=== PATIENT | male | born 1965 | race Caucasian/White ===

== ENCOUNTER 2017-12-02 13:55 | Emergency (ER) | payer OTHER, MEDICAID, SELFPAY ==
[2017-12-02 14:04] VITALS: BP 150/90; PULSE 86; RESP 18; TEMP 36.6; O2SAT 99
--- NOTE | 2017-12-02 14:09 | ED.SKABFB ---
HPI - Skin/Abscess/Foreign Bdy <Hanane Davenport PA-C - Last Filed: 12/02/17 17:56> General Chief complaint: Skin/Abscess/Foreign Body Stated complaint: states cellulitis on rt ankle Time Seen by Provider: 12/02/17 14:06 Source: patient Mode of arrival: ambulatory Limitations: no limitations History of Present Illness HPI narrative: This 52-year-old gentleman comes in today due to concern for recurrent infection on his right ankle. He states that he had a small sore there starting 2 or 3 years ago, which she just treats on and off with hydrocortisone. However, a month or so ago he was seen at another local emergency room due to increased pain and redness as well as drainage. He states he had an open wound at that time. He was treated with an antibiotic and this got better, however now he feels like it is getting worse again for the last few days. He states that this has been quite itchy and admits he has been scratching at it, then he stepped in some concrete as well which has made it even more itchy and irritated. Has been treating with some hot water and Epsom salt which seems soothing. He states that he tends to have some swelling in that ankle and foot at baseline due to history of crush injury. He also admits that he has been off of his 3 blood pressure medications including a diuretic due to not being able to get in for follow-up with his PCP. He states that the redness and swelling in the ankle are not acutely changed today versus yesterday, but felt like he was going to need antibiotics again so came in. He has not had any fever. He denies any other new complaints such as chest discomfort or dyspnea on systems review and has been going about his usual activities Related Data Previous Rx's Medication Instructions Recorded amlodipine 10 mg PO DAILY #10 tab 12/02/17 doxycycline monohydrate 100 mg PO BID 10 Days #20 cap 12/02/17 hydrochlorothiazide 25 mg PO DAILY #10 tab 12/02/17 losartan 50 mg PO DAILY #10 tab 12/02/17 Allergies Allergy/AdvReac Type Severity Reaction Status Date / Time No Known Drug Allergies Allergy Verified 12/02/17 14:03 Review of Systems <Hanane Davenport PA-C - Last Filed: 12/02/17 17:56> Review of Systems All systems reviewed & are unremarkable except as noted in HPI and below Exam <Hanane Davenport PA-C - Last Filed: 12/02/17 17:56> Narrative Exam Narrative: GENERAL APPEARANCE: Patient sitting comfortably, in no distress. NECK/THYROID: Neck supple, no JVD. LUNGS: Clear to auscultation bilaterally. HEART: Regular rate and rhythm without murmur, normal S1, S2, no S3 or S4. EXTREMITIES: No cyanosis. Left foot and ankle trace edema, 1+ on the right. There are a few bullous lesions along the right medial border of the foot. No calf tenderness NEUROLOGIC: Alert and oriented, normal speech, and coordination. DERMATOLOGIC: there is some dusky erythema on the R. duarte. R. ankle and medial duarte there is some brighter erythema in the center of this which is warm to touch, and a small central pore. No fluctuance or open wounds. Moderately tender to touch MS: Full AROM R. foot and ankle Initial Vital Signs Initial Vital Signs: Vital Signs Temperature 97.9 F 12/02/17 14:04 Pulse Rate 86 12/02/17 14:04 Respiratory Rate 18 12/02/17 14:04 Blood Pressure 150/90 H 12/02/17 14:04 Pulse Oximetry 99 12/02/17 14:04 <Cinthia Alicea DO - Last Filed: 12/05/17 12:32> Initial Vital Signs Initial Vital Signs: Vital Signs Temperature 97.9 F 12/02/17 14:04 Pulse Rate 86 12/02/17 14:04 Respiratory Rate 18 12/02/17 14:04 Blood Pressure 150/90 H 12/02/17 14:04 Pulse Oximetry 99 12/02/17 14:04 Course <LINDA Fields Last Filed: 12/02/17 17:56> Vital Signs - 8 hr 12/02/17 14:04 12/02/17 15:18 Temperature 97.9 F Pulse Rate 86 69 Respiratory Rate 18 14 Blood Pressure 150/90 H 137/93 H Pulse Oximetry 99 97 <DO Landon Fuentes Last Filed: 12/05/17 12:32> Vital Signs - 8 hr 12/02/17 14:04 12/02/17 15:18 Temperature 97.9 F Pulse Rate 86 69 Respiratory Rate 18 14 Blood Pressure 150/90 H 137/93 H Pulse Oximetry 99 97 Discharge Plan Departure Patient Disposition: Home Clinical Impression: Cellulitis, Hypertension Discharge Date/Time: 12/02/17 15:19 Interventions: ED Discharge Assessment Last Done: 12/02/17 15:18 Instructions: DI for Cellulitis -- Adult Activity Restrictions/Additional Instructions: Please return as we talked about if you have acutely worsening symptoms such as much more redness, pain, or swelling, or new symptoms such as fever. 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 Take a 2nd dose before bedtime this evening. Take with food. Avoid scratching the area. If it gets itchy, please apply a cold pack for a bit, such as frozen vegetables. I have sent in a prescription for a supply of your previous blood pressure medicines as well. Please restart these as the diuretic (water pill) that you were taking may help with the swelling in your leg. You were taking 2 of the 12.5 mg hydrochlorothiazide daily. I changed that to a 25 mg pill that you can take once daily. Other medicines will be the same. You need to follow up with your primary care office in 2-3 days to recheck this. Please call 1st thing in the morning for an appointment Prescriptions: New losartan 50 mg tablet 50 mg PO DAILY Qty: 10 RF: 0 amlodipine 5 mg tablet 10 mg PO DAILY Qty: 10 RF: 0 doxycycline monohydrate 100 mg capsule 100 mg PO BID 10 Days Qty: 20 RF: 0 hydrochlorothiazide 25 mg tablet 25 mg PO DAILY Qty: 10 RF: 0 Referrals: Aranza Luna ARNP [Non-Staff] - <Cinthia Alicea DO - Last Filed: 12/05/17 12:32> Cosign ED Attending Cossimbaature Attestation: I was immediately available in the department for consultation. This documentation has been reviewed and I agree with assessment and plan. Supervised by Cinthia Alicea DO
[2017-12-02 15:18] VITALS: BP 137/93; PULSE 69; RESP 14; O2SAT 97
== END 2017-12-02 15:19 | disposition home or self-care (01) ==
PROVIDERS: Emergency Provider Internal Medicine
DX: L03.115 Cellulitis of right lower limb (principal)
CPT/HCPCS: 99282

== ENCOUNTER 2020-09-12 07:13 | Emergency (ER) | payer SELFPAY ==
[2020-09-12] VITALS (9 sets, daily range): BP systolic 147–179; BP diastolic 85–101; PULSE 77–87; RESP 15–21; TEMP 36.4; O2SAT 82–100; BMI 30.7
--- NOTE | 2020-09-12 07:29 | ED_ITS ---
HPI - Abdominal Pain General Chief Complaint: Abdominal Pain Stated Complaint: food poisoning, woke up with pain in sides Time Seen by Provider: 09/12/20 07:16 Source: patient and other (friend at bedside) Mode of arrival: Wheelchair Limitations: no limitations History of Present Illness HPI narrative: This is a 55-year-old male comes emergency department with complaint of right lower quadrant abdominal pain that started yesterday patient said he had nausea and vomiting and had a bowel movement yesterday. He denies any diarrhea, constipation or black or bloody stools. He states his symptoms improved and then this morning at 4:00 a.m. he developed significant right lower quadrant pain again. Patient states he did ever really appreciated flank. He is unaware of any fevers or chills. He denies any nausea or vomiting currently but states he did have a yesterday. He has not had a bowel movement today. He is not appreciating difficulty with urination, no burning frequency or other changes. Patient states it has not been changing location. Patient states he does have history kidney stone he states this feels somewhat similar. He also has a history of appendectomy. Patient denies any daily medications. He is allergic to sulfa. He states he did finish the antibiotic recently for cellulitis in his right lower extremity. Patients primary care is/was Dr. Simeon. Related Data Previous Rx's Medication Instructions Recorded amlodipine 10 mg PO DAILY #10 tab 12/02/17 hydrochlorothiazide 25 mg PO DAILY #10 tab 12/02/17 losartan 50 mg PO DAILY #10 tab 12/02/17 oxycodone 5 mg PO Q6H PRN #14 tab 09/12/20 tamsulosin [Flomax] 0.4 mg PO DAILY #7 cap 09/12/20 Allergies Allergy/AdvReac Type Severity Reaction Status Date / Time Sulfa (Sulfonamide Allergy Verified 09/12/20 07:25 Antibiotics) Review of Systems Review of Systems ROS Unobtainable: All systems reviewed & are unremarkable except as noted in HPI and below Patient History Medical History Crush injury of foot HTN (hypertension) Surgical History History of appendectomy Social History (Reviewed 09/12/20 @ 07:36 by LATISHA Fuentes Smoking Status: Current every day smoker Smoking Status: Current every day smoker alcohol intake frequency: holidays/special occasions only Substance Use Type: does not use Exam Narrative Exam Narrative: GENERAL: Alert and oriented x three, male in moderate distress. Patient is having difficulty finding position of comfort. HEENT: Head normocephalic, atraumatic, EOMI, pupils reactive, face symmetric, moist mucous membranes NECK: Supple, full range of motion CARDIOVASCULAR: Regular rate and rhythm without murmurs, rubs or gallops. RESPIRATORY: Breath sounds equal bilaterally, no wheezes rales or rhonchi. ABDOMEN: Soft, nontender on exam. Normoactive bowel sounds all 4 quadrants. No guarding or rebound, rigidity, no mass, no bruit, no pulsatile mass. : No CVA tenderness bilaterally. EXTREMITIES: Normal range of motion. Neurovascularly intact NEUROLOGICAL: Cranial nerves II through XII grossly intact. Moving all extremities SKIN: Warm, dry, no petechiae, no rashes or lesions. Initial Vital Signs Initial Vital Signs: Vital Signs Pulse Rate 87 09/12/20 07:19 Pulse Oximetry 96 09/12/20 07:19 Course Orders Ordered: Discontinued Medications Sodium Chloride (Normal Saline 0.9%) 1,000 mls @ 1,000 mls/hr IV BOLUS ONE Stop: 09/12/20 08:29 Last Infusion: 09/12/20 09:15 Dose: 0 mls/hr Documented by: Admin: 09/12/20 07:48 Dose: 1,000 mls/hr Documented by: ZAC Ketorolac Tromethamine (Ketorolac 30 Mg/Ml Vial) 30 mg IV NOW ONE Stop: 09/12/20 07:30 Last Admin: 09/12/20 07:52 Dose: 30 mg Documented by: ZAC Morphine Sulfate (Morphine 4 Mg/Ml Inj) 4 mg IV NOW ONE Stop: 09/12/20 08:01 Last Admin: 09/12/20 08:03 Dose: 4 mg Documented by: ZAC Ondansetron HCl (Ondansetron 4 Mg/2 Ml Inj) 4 mg IV NOW ONE Stop: 09/12/20 07:34 Last Admin: 09/12/20 07:50 Dose: 4 mg Documented by: ZAC Tamsulosin HCl (Tamsulosin 0.4 Mg Capsule) 0.4 mg PO NOW ONE Stop: 09/12/20 08:41 Last Admin: 09/12/20 09:12 Dose: 0.4 mg Documented by: ZAC Vital Signs Vital signs: Vital Signs - 8 hr 09/12/20 07:21 Temperature 97.5 F L Pulse Rate 87 Respiratory Rate 16 Blood Pressure 179/101 H Pulse Oximetry 96 MDM - Abdominal Pain Lab Data Attestation: I reviewed the patient's lab results. Result diagrams: 09/12/20 07:40 09/12/20 07:40 Labs: Lab Results 09/12/20 09/12/20 Range/Units 07:40 07:40 WBC 13.6 H (4.5-11.0) X10^3/uL RBC 4.72 (4.5-5.9) X10^6/uL Hgb 14.2 (13.5-17.5) g/dL Hct 43.0 (41-53) % MCV 91.2 (80-100) fL MCH 30.1 (26-34) PG MCHC 33.0 (30-36) % RDW 14.0 (11.6-14.8) % Plt Count 319 (150-400) X10^3/uL Neut % (Auto) 70.7 (50-75) % Lymph % (Auto) 20.9 L (25-40) % Dane % (Auto) 6.7 (3-14) % Eos % (Auto) 1.4 L (2-4) % Baso % (Auto) 0.3 (0-2) % Neut # (Auto) 9600 H (1847-2102) /uL Lymph # (Auto) 2800 (5342-5529) /uL Dane # (Auto) 900 (0-900) /uL Eos # (Auto) 200 (0-450) /uL Baso # (Auto) 0 (0-100) /uL Sodium 138 (137-145) mmol/L Potassium 4.0 (3.4-5.1) mmol/L Chloride 102 (98-107) mmol/L Carbon Dioxide 27 (22-32) mmol/L BUN 19 (9-20) mg/dL Creatinine 1.01 (0.66-1.25) mg/dL Estimated GFR > 60.0 (>60) mL/min BUN/Creatinine Ratio 18.8 (6-22) Glucose 119 H (70-100) mg/dL Calcium 9.6 (8.4-10.2) mg/dL Total Bilirubin 0.4 (0.2-1.3) mg/dL AST 27 (17-59) IU/L ALT 25 (<50) IU/L Alkaline Phosphatase 81 (38-126) U/L Total Protein 7.4 (6.3-8.2) g/dL Albumin 4.2 (3.5-5.0) g/dL Globulin 3.2 (1.7-4.1) g/dL Albumin/Globulin Ratio 1.3 (1.0-2.8) Lipase 66 (23-300) U/L Point of care testing: Urine Dip Bedside Urine Glucose Negative Bedside Urine Bilirubin - Negative Bedside Urine Ketone - Negative Urine Specific Norris 1.025 Bedside Urine Occult Blood +++ Bedside Urine pH 6 Bedside Urine Urobilinogen - Negative Bedside Urine Nitrite - Negative Bedside Urine Leukocytes - Negative Esterase Imaging Data CT scan - abdomen/pelvis: Radiologist's Impression: [address] [id number] Scan ReportSigned Patient: Merritt Alexandre RMR#: [id number]: 1965Acct:[id number]/Sex: 55 / MDate of Service: 09/12/20Loc: EDAccession Number: [id number] Procedure: CT kidney ureter bladder (KUB) Ordering Provider: Cinthia Alicea D.O. PROCEDURE: CT KIDNEY URETER BLADDER (KUB) INDICATIONS: rlq pain, intermittent, hx appy. ? stone TECHNIQUE: Axial sections were acquired from the lung bases to the pubic symphysis. Coronal and sagittal reformats were performed. For radiation dose reduction, the following was used: automated exposure control, adjustment of mA and/or kV according to patient size. COMPARISON:None. FINDINGS: Image quality: Excellent. Lung bases: The lung bases are clear. No pneumothorax or pleural effusion. Heart: Normal size. No pericardial effusions. URINARY: Right Kidney: Nonobstructive calculi are seen in the collecting systems of both kidneys Right Ureter: At least 1 kidney stone in the distal ureter measuring 4 millimeters causes mild right hydronephrosis. 2 additional calcifications near the left ureter are also seen but are probably vascular calcifications. Left Kidney: 5 centimeter simple cyst. Nonobstructive calculi measuring 2-5 millimeters in the collecting systems. Left Ureter: No hydroureter or stones. Bladder: Normal wall thickness. No stones. ABDOMEN: Liver: The liver has no mass or intrahepatic biliary ductal dilatation. Gallbladder: The gallbladder has no gallstones, pericholecystic fluid, gallbladder wall thickening, or surrounding inflammatory change. Biliary ducts: No extrahepatic biliary ductal dilatation. Pancreas: The pancreas has no mass or ductal dilatation. There is no peripancreatic inflammation. Spleen: Normal size with no mass. Adrenal Glands: No hypertrophy or nodules. Stomach and Bowel: Stomach, small bowel loops, and colon are unremarkable. The appendix is not definitively visualized; however there are no secondary CT findings to suggest acute appendicitis. Peritoneum: No abnormal intraperitoneal fluid. No free air. Ventral Wall: No hernia. Abdominal Nodes: No enlarged retroperitoneal or mesenteric lymph nodes. Vessels: Aorta and inferior vena cava are normal in size. PELVIS: Pelvic Organs: No mass or fluid. Pelvic Nodes: No adenopathy Miscellaneous: Small fat containing inguinal hernias. Bones: Degenerative changes with no focal abnormality. IMPRESSION: 1. 4 mm stone in the right distal ureter. 2. The appendix is not visualized, however there are no secondary findings to suggest acute appendicitis. Dictated by: Tutu Maldonado M.D. on 09/12/2020 at 8:25 Approved by: Tutu Maldonado M.D. on 09/12/2020 at 8:35 MDM Narrative Medical decision making narrative: This is a 55-year-old male comes emergency department with abdominal pain of acute onset. Patient did have some symptoms the day before. And had some nausea and vomiting the day before. Patient's imaging shows a 4 mm stone. No acute kidney injury. He was able to urinate and does not appear to have any infection a mild leukocytosis which may be reactive. Toradol was minimally helpful who is much more comfortable after narcotic pain medication. He is able to tolerate orals. Patient has had 1 prior kidney stone which did not require intervention. Given referral for Urology as well as return precautions. Discharge Plan Departure Patient Disposition: Home Clinical Impression: Kidney stone on right side Instructions: DI for Kidney Stones Activity Restrictions/Additional Instructions: Follow up with urology in the next week if your symptoms do not resolve in the next 2-3 days. Take Flomax once daily until gone. You may take Tylenol up to a 1000 mg every 8 hours and or ibuprofen up to 800 mg every 8 hours. If this is an adequate you may add narcotic pain medication. Take pain medication as prescribed. This medication can make you sleepy do not drive, perform hazardous activities or make any major decisions while taking it. This medication will make you constipated please take a stool softener once to twice daily until stools are soft and regular. Prescription sent to [facility] in [place]. Please return for fevers, lightheadedness or passing out, intractable pain, persistent vomiting, new or changing pain, black or bloody stools, inability urinate or other new or concerning symptoms. Prescriptions: New tamsulosin [Flomax] 0.4 mg capsule 0.4 mg PO DAILY Qty: 7 RF: 0 oxycodone 5 mg tablet 5 mg PO Q6H PRN (Reason: pain) Qty: 14 RF: 0 No Action losartan 50 mg tablet 50 mg PO DAILY Qty: 10 RF: 0 amlodipine 5 mg tablet 10 mg PO DAILY Qty: 10 RF: 0 hydrochlorothiazide 25 mg tablet 25 mg PO DAILY Qty: 10 RF: 0 Referrals: Dustin Wheeler MD [Physician] -
[2020-09-12] MEDS: SODIUM CHLORIDE 0.9% 1,000 ML 1000 ML IV (07:48)
[2020-09-12 07:50] LABS: Add Manual Diff / Slide Review NO; Basophils Absolute Auto 0 /uL (0-100); Basophils Percent Auto 0.3 % (0-2); Eosinophils Absolute Auto 200 /uL (0-450); Eosinophils Percent Auto 1.4 % (2-4); Hemoglobin 14.2 g/dL (13.5-17.5); Lymphocytes Absolute Auto 2800 /uL (1100-4500); Lymphocytes Percent Auto 20.9 % (25-40); Mean Corpuscular Hemoglobin 30.1 PG (26-34); Mean Corpuscular Volume 91.2 fL (80-100); Monocytes Absolute Auto 900 /uL (0-900); Monocytes Percent Auto 6.7 % (3-14); Neutrophils Absolute Auto 9600 /uL (1500-7000); Neutrophils Percent Auto 70.7 % (50-75); Platelet Count 319 X10^3/uL (150-400); Red Blood Cell Count 4.72 X10^6/uL (4.5-5.9); White Blood Cell Count 13.6 X10^3/uL (4.5-11.0)
[2020-09-12] MEDS: ONDANSETRON 4 MG/2 ML INJ IV (07:50)
[2020-09-12] MEDS: KETOROLAC 30 MG/ML VIAL IV (07:52)
[2020-09-12] MEDS: MORPHINE 4 MG/ML INJ IV (08:03)
--- NOTE | 2020-09-12 08:15 | DI.CT.S_ITS ---
PROCEDURE: CT KIDNEY URETER BLADDER (KUB) INDICATIONS: rlq pain, intermittent, hx appy. ? stone TECHNIQUE: Axial sections were acquired from the lung bases to the pubic symphysis. Coronal and sagittal reformats were performed. For radiation dose reduction, the following was used: automated exposure control, adjustment of mA and/or kV according to patient size. COMPARISON:None. FINDINGS: Image quality: Excellent. Lung bases: The lung bases are clear. No pneumothorax or pleural effusion. Heart: Normal size. No pericardial effusions. URINARY: Right Kidney: Nonobstructive calculi are seen in the collecting systems of both kidneys Right Ureter: At least 1 kidney stone in the distal ureter measuring 4 millimeters causes mild right hydronephrosis. 2 additional calcifications near the left ureter are also seen but are probably vascular calcifications. Left Kidney: 5 centimeter simple cyst. Nonobstructive calculi measuring 2-5 millimeters in the collecting systems. Left Ureter: No hydroureter or stones. Bladder: Normal wall thickness. No stones. ABDOMEN: Liver: The liver has no mass or intrahepatic biliary ductal dilatation. Gallbladder: The gallbladder has no gallstones, pericholecystic fluid, gallbladder wall thickening, or surrounding inflammatory change. Biliary ducts: No extrahepatic biliary ductal dilatation. Pancreas: The pancreas has no mass or ductal dilatation. There is no peripancreatic inflammation. Spleen: Normal size with no mass. Adrenal Glands: No hypertrophy or nodules. Stomach and Bowel: Stomach, small bowel loops, and colon are unremarkable. The appendix is not definitively visualized; however there are no secondary CT findings to suggest acute appendicitis. Peritoneum: No abnormal intraperitoneal fluid. No free air. Ventral Wall: No hernia. Abdominal Nodes: No enlarged retroperitoneal or mesenteric lymph nodes. Vessels: Aorta and inferior vena cava are normal in size. PELVIS: Pelvic Organs: No mass or fluid. Pelvic Nodes: No adenopathy Miscellaneous: Small fat containing inguinal hernias. Bones: Degenerative changes with no focal abnormality. IMPRESSION: 1. 4 mm stone in the right distal ureter. 2. The appendix is not visualized, however there are no secondary findings to suggest acute appendicitis. Dictated by: Tutu Maldonado M.D. on 09/12/2020 at 8:25 Approved by: Tutu Maldonado M.D. on 09/12/2020 at 8:35
[2020-09-12 08:19] LABS: Alanine Aminotransferase 25 IU/L (<50); Albumin 4.2 g/dL (3.5-5.0); Albumin Globulin Ratio 1.3 (1.0-2.8); Alkaline Phosphatase 81 U/L (38-126); Aspartate Aminotransferase 27 IU/L (17-59); BUN Creatinine Ratio 18.8 (6-22); Bilirubin Total 0.4 mg/dL (0.2-1.3); Blood Urea Nitrogen 19 mg/dL (9-20); Calcium 9.6 mg/dL (8.4-10.2); Carbon Dioxide 27 mmol/L (22-32); Chloride 102 mmol/L (98-107); Estimated Glomerular Filt Rate > 60.0 mL/min (>60); Globulin 3.2 g/dL (1.7-4.1); Glucose 119 mg/dL (70-100); HEMOLYSIS < 15 (0-50); Lipase 66 U/L (23-300); Sodium 138 mmol/L (137-145); Total Protein 7.4 g/dL (6.3-8.2)
[2020-09-12] MEDS: TAMSULOSIN 0.4 MG CAPSULE PO (09:12)
== END 2020-09-12 10:35 | disposition home or self-care (01) ==
PROVIDERS: Emergency Provider Emergency Medicine
DX: N20.0 Calculus of kidney (principal); Z87.442 Personal history of urinary calculi; R11.2 Nausea with vomiting, unspecified
CPT/HCPCS: 36415; 74176; 80053; 81003; 83690; 85025; 96361; 96374; 96375; 99284; J1885; J2270; J2405

== ENCOUNTER 2020-12-12 10:02 | Emergency (ER) | payer SELFPAY ==
[2020-12-12] VITALS (7 sets, daily range): BP systolic 153–154; BP diastolic 85–93; PULSE 83–104; RESP 16; TEMP 36.3; O2SAT 91–100; BMI 29.2
--- NOTE | 2020-12-12 10:30 | ED_ITS ---
HPI - Abdominal Pain General Chief Complaint: Abdominal Pain Stated Complaint: abdominal pain, poss kidney stone(s) Time Seen by Provider: 12/12/20 10:33 Source: patient and family Mode of arrival: Wheelchair History of Present Illness HPI narrative: Patient complains of onset for 5 days ago of mostly left lower abdominal left flank pain rating to the groin. Seen here August 2020 for kidney stone on the right side. States feels about the same. That was the 2nd kidney stone. Never saw urologist or had any procedures in the past. No recent illness. No fever chills. No dysuria or urgency. Has had decreased urination. Colonoscopy in the past with polyp findings. No diverticulosis or diverticulitis history. Denies any chest pain. No hematuria. No dysuria. Related Data Previous Rx's Medication Instructions Recorded amlodipine 5 mg tablet 10 mg PO DAILY #10 tab 12/02/17 hydrochlorothiazide 25 mg tablet 25 mg PO DAILY #10 tab 12/02/17 losartan 50 mg tablet 50 mg PO DAILY #10 tab 12/02/17 oxycodone 5 mg tablet 5 mg PO Q6H PRN #14 tab 09/12/20 tamsulosin 0.4 mg capsule (Flomax) 0.4 mg PO DAILY #7 cap 09/12/20 cephalexin 500 mg capsule 500 mg PO QID #20 cap 12/12/20 hydrocodone 5 mg-acetaminophen 325 1 tab PO Q6H PRN #20 tab 12/12/20 mg tablet ondansetron 4 mg disintegrating 4 mg PO Q8H PRN #10 tab 12/12/20 tablet tamsulosin 0.4 mg capsule (Flomax) 0.4 mg PO BEDTIME #30 cap 12/12/20 Allergies Allergy/AdvReac Type Severity Reaction Status Date / Time Sulfa (Sulfonamide Allergy Verified 09/12/20 07:25 Antibiotics) Review of Systems Review of Systems Narrative: GENERAL: Denies chills, fatigue, malaise, fever, sweats. HEENT: Denies sinus pain, ear pain, sore throat RESPIRATORY: Denies dyspnea, cough CARDIOVASCULAR: Denies chest pain, palpitations GASTROINTESTINAL: Denies nausea, vomiting, complains of left flank and abdominal pain : Denies dysuria, frequency, hematuria MUSCULOSKELETAL: denies muscle or bony pain SKIN: Denies rash, skin lesions NEUROLOGIC: Denies weakness, numbness ROS Unobtainable: All systems reviewed & are unremarkable except as noted in HPI and below Patient History Medical History Crush injury of foot HTN (hypertension) Surgical History History of appendectomy Social History Smoking Status: Current every day smoker Smoking Status: Current every day smoker alcohol intake frequency: a few times a month Substance Use Type: does not use Exam Narrative Exam Narrative: GENERAL: in no distress, not toxic not dyspneic HEAD: Normocephalic. EYES: Pupils equal round No scleral icterus. No injection no discharge ENT: Mucous membranes moist. NECK: Trachea midline. CARDIOVASCULAR: Regular rate and rhythm without murmurs RESPIRATORY: Clear to auscultation. Breath sounds equal bilaterally. No wheezes, rales, or rhonchi. GASTROINTESTINAL: Abdomen soft, non-tender, no CVA tenderness, abdomen nontender all 4 quadrants. No peritoneal signs. Bowel sounds present. EXTREMITIES: No gross deformities. BACK: No flank tenderness. NEURO: AOx4. SKIN: Warm and dry PSYCH: Not anxious, is cooperative Initial Vital Signs Initial Vital Signs: Vital Signs Pulse Rate 97 H 12/12/20 10:19 Blood Pressure 154/93 H 12/12/20 10:19 Pulse Oximetry 97 12/12/20 10:19 Course Course Course Narrative: No new issues during course of stay. Pain controlled Orders Ordered: ED Orders 12/12/20 10:28 CT kidney ureter bladder (KUB) Stat 12/12/20 10:35 Complete Blood Count AUTO DIFF Stat Comprehensive Metabolic Panel Stat Lipase Stat 12/12/20 11:53 Urinalysis and Microscopic Stat Discontinued Medications Cephalexin HCl (Cephalexin 250 Mg Capsule) 500 mg PO NOW ONE Stop: 12/12/20 13:08 Last Admin: 12/12/20 13:18 Dose: 500 mg Documented by: JAYLENE Sodium Chloride (Normal Saline 0.9%) 1,000 mls @ 1,000 mls/hr IV BOLUS ONE Stop: 12/12/20 11:27 Last Infusion: 12/12/20 11:49 Dose: 0 mls/hr Documented by: Admin: 12/12/20 10:46 Dose: 1,000 mls/hr Documented by: JAYLENE Morphine Sulfate (Morphine 4 Mg/Ml Inj) 4 mg IV NOW ONE Stop: 12/12/20 10:29 Last Admin: 12/12/20 10:45 Dose: 4 mg Documented by: JAYLENE Ondansetron HCl (Ondansetron 4 Mg/2 Ml Inj) 4 mg IV NOW ONE Stop: 12/12/20 10:29 Last Admin: 12/12/20 10:45 Dose: 4 mg Documented by: JAYLENE Tamsulosin HCl (Tamsulosin 0.4 Mg Capsule) 0.4 mg PO NOW ONE Stop: 12/12/20 13:11 Last Admin: 12/12/20 13:20 Dose: 0.4 mg Documented by: JAYLENE Reevaluation(s) Reevaluation #1: Updated patient results. Pain control at this time. Awaiting call back from Dr. Wheeler, urology Time: 11:58 Reevaluation #2: Reviewed with patient conversation I had with Dr. Wheeler. Currently pain free. He agrees for follow-up in the office this week. His boss is at bedside Time: 13:08 Consultations Consultation #1: Spoke with Dr. Wheeler, urology. Review laboratory studies and imaging. At this time does not feel need for urgent intervention for the kidney stone. White cell count without fever likely demargination secondary to stress. Urine shows no signs of infection. Prescribed Flomax for 30 days Vital Signs Vital signs: Vital Signs - 8 hr 12/12/20 10:45 12/12/20 11:00 12/12/20 11:30 Pulse Rate 93 H 86 83 Blood Pressure Pulse Oximetry 91 96 98 12/12/20 13:20 12/12/20 13:21 Pulse Rate 104 H Blood Pressure 153/85 H Pulse Oximetry 100 MDM - Abdominal Pain Differential Diagnosis Differential diagnosis: Likely abdominal pain, acute appendicitis, calculus of kidney, constipation, diverticulitis, pancreatitis and small bowel obstruction Lab Data Result diagrams: 12/12/20 10:35 12/12/20 10:35 Labs: Lab Results 12/12/20 12/12/20 12/12/20 Range/Units 10:35 10:35 11:53 WBC 15.9 H (4.5-11.0) X10^3/uL RBC 4.81 (4.5-5.9) X10^6/uL Hgb 14.6 (13.5-17.5) g/dL Hct 44.1 (41-53) % MCV 91.8 (80-100) fL MCH 30.3 (26-34) PG MCHC 33.0 (30-36) % RDW 14.3 (11.6-14.8) % Plt Count 298 (150-400) X10^3/uL Neut % (Auto) 78.6 H (50-75) % Lymph % (Auto) 10.5 L (25-40) % Travis % (Auto) 10.3 (3-14) % Eos % (Auto) 0.2 L (2-4) % Baso % (Auto) 0.4 (0-2) % Neut # (Auto) 23824 H (3170-8089) /uL Lymph # (Auto) 1700 (9486-1367) /uL Travis # (Auto) 1600 H (0-900) /uL Eos # (Auto) 0 (0-450) /uL Baso # (Auto) 100 (0-100) /uL Sodium 135 L (137-145) mmol/L Potassium 3.8 (3.4-5.1) mmol/L Chloride 96 L (98-107) mmol/L Carbon Dioxide 30 (22-32) mmol/L BUN 22 H (9-20) mg/dL Creatinine 1.37 H (0.66-1.25) mg/dL Estimated GFR 53.9 L (>60) mL/min BUN/Creatinine Ratio 16.1 (6-22) Glucose 118 H (70-100) mg/dL Calcium 9.4 (8.4-10.2) mg/dL Total Bilirubin 0.9 (0.2-1.3) mg/dL AST 23 (17-59) IU/L ALT 20 (<50) IU/L Alkaline Phosphatase 82 (38-126) U/L Total Protein 7.9 (6.3-8.2) g/dL Albumin 4.5 (3.5-5.0) g/dL Globulin 3.4 (1.7-4.1) g/dL Albumin/Globulin Ratio 1.3 (1.0-2.8) Lipase 24 (23-300) U/L Urine Color Yellow Urine Appearance Clear Urine pH 6.0 (4.5-8.0) Ur Specific [place] 1.010 (1.000-1.035) Urine Protein Negative (Negative) Urine Glucose (UA) Negative (Negative) g/dL Urine Ketones Trace H (NEGATIVE) Urine Occult Blood Trace-lysed (Negative) Urine Nitrate Negative (Negative) Urine Bilirubin Negative (NEGATIVE) Urine Urobilinogen 0.2 (0.2) E.U./dL Ur Leukocyte Esterase Negative (NEGATIVE) Urine RBC 5-10/hpf H (0-5/HPF) Urine WBC None seen (0-5/HPF) Ur Squamous Epith Cells 0-1 /hpf (0-5/HPF) Amorphous Sediment 1+ Urine Bacteria None seen (None) Urine Sperm 2+ Ur Culture Indicated? Cult not indicated Imaging Data CT scan - abdomen/pelvis: Radiologist's Impression: [address] [id number] Scan ReportSigned Patient: Merritt Alexandre R#: [id number]: 1965Acct:[id number]/Sex: 55 / MDate of Service: 12/12/20Loc: EDAccession Number: [id number] Procedure: CT kidney ureter bladder (KUB) Ordering Provider: Robert Wilson MD PROCEDURE: CT KIDNEY URETER BLADDER (KUB) INDICATIONS: lt flank pain TECHNIQUE: Axial sections were acquired from the lung bases to the pubic symphysis. Coronal and sagittal reformats were performed. For radiation dose reduction, the following was used: automated exposure control, adjustment of mA and/or kV according to patient size. COMPARISON: [facility], CT, CT KIDNEY URETER BLADDER (KUB), 09/12/2020, 8:00. FINDINGS: Image quality: Excellent. Lung bases: A small pleural base nodule along the left lower lobe measuring up to 4 mm on series 3, image 9 appears stable in size compared to the recent prior study.. Heart: No significant findings. URINARY: Right Kidney and ureter: There is a punctate nonobstructing stone in the super ior pole of the right kidney. No right hydronephrosis or hydroureter. Left Kidney and ureter: There is a small obstructing stone measuring approximately 3-4 mm within the distal left ureter just proximal to the ureterovesicular junction. There is associated mild left hydroureteronephrosis with perinephric and periureteral fat stranding. There are additional nonobstructing left renal stones including clustered stones within the inferior pole with the largest measuring up to approximately 3 mm. Bladder: Normal wall thickness. No stones. ABDOMEN: Liver: Unremarkable. Gallbladder: Unremarkable. Biliary ducts: Unremarkable. Pancreas: Unremarkable. Spleen: Unremarkable. Adrenal Glands: Unremarkable. Stomach and Bowel: Stomach, small bowel loops, and colon are normal in caliber and wall thickness. There are few colonic diverticula without acute diverticulitis. Peritoneum: No abnormal intraperitoneal fluid. No free air. Ventral Wall: No hernia. Abdominal Nodes: No enlarged retroperitoneal or mesenteric lymph nodes. Vessels: Aorta and inferior vena cava are normal in size. PELVIS: Pelvic Organs: Unremarkable. Pelvic Nodes: Unremarkable. Miscellaneous: No inguinal hernias are seen. Bones: Unremarkable. IMPRESSION: 1. Obstructing 3-4 mm stone within the distal left ureter with mild left hydroureteronephrosis. 2. Additional small nonobstructing bilateral renal stones as described. Dictated by: Krishna Wright M.D. on 12/12/2020 at 10:43 Approved by: Krishna Wright M.D. on 12/12/2020 at 11:02 MDM Narrative Medical decision making narrative: Appropriate for discharge home. Otherwise reassuring laboratory studies imaging and exam. Pain is controlled. Reviewed with Dr. Wheeler, urology. Give patient pain medications/antibiotics as well as Flomax. He will follow-up with patient this week. Discharge Plan Departure Patient Disposition: Home Clinical Impression: Left ureteral stone Instructions: DI for Kidney Stones Activity Restrictions/Additional Instructions: No driving or operating machinery today. Or when taking prescribed pain medication. Call Dr. Wheeler office today for office appointment this week. Return if worsening questions or concerns or any fever or problems urinating Prescriptions: New hydrocodone-acetaminophen 5-325 mg tablet 1 tab PO Q6H PRN (Reason: pain) Qty: 20 RF: 0 ondansetron 4 mg tablet,disintegrating 4 mg PO Q8H PRN (Reason: nausea and vomiting) Qty: 10 RF: 0 cephalexin 500 mg capsule 500 mg PO QID Qty: 20 RF: 0 tamsulosin [Flomax] 0.4 mg capsule 0.4 mg PO BEDTIME Qty: 30 RF: 0 No Action tamsulosin [Flomax] 0.4 mg capsule 0.4 mg PO DAILY Qty: 7 RF: 0 oxycodone 5 mg tablet 5 mg PO Q6H PRN (Reason: pain) Qty: 14 RF: 0 losartan 50 mg tablet 50 mg PO DAILY Qty: 10 RF: 0 amlodipine 5 mg tablet 10 mg PO DAILY Qty: 10 RF: 0 hydrochlorothiazide 25 mg tablet 25 mg PO DAILY Qty: 10 RF: 0 Referrals: Dustin Wheeler MD [Physician] -
[2020-12-12] MEDS: MORPHINE 4 MG/ML INJ IV (10:45)
[2020-12-12] MEDS: ONDANSETRON 4 MG/2 ML INJ IV (10:45)
[2020-12-12] MEDS: SODIUM CHLORIDE 0.9% 1,000 ML 1000 ML IV (10:46)
[2020-12-12 10:48] LABS: Add Manual Diff / Slide Review NO; Basophils Absolute Auto 100 /uL (0-100); Basophils Percent Auto 0.4 % (0-2); Eosinophils Absolute Auto 0 /uL (0-450); Eosinophils Percent Auto 0.2 % (2-4); Hematocrit 44.1 % (41-53); Hemoglobin 14.6 g/dL (13.5-17.5); Lymphocytes Absolute Auto 1700 /uL (1100-4500); Lymphocytes Percent Auto 10.5 % (25-40); Mean Corpuscular Hemoglobin 30.3 PG (26-34); Mean Corpuscular Volume 91.8 fL (80-100); Monocytes Absolute Auto 1600 /uL (0-900); Monocytes Percent Auto 10.3 % (3-14); Neutrophils Absolute Auto 12500 /uL (1500-7000); Neutrophils Percent Auto 78.6 % (50-75); Platelet Count 298 X10^3/uL (150-400); Red Blood Cell Count 4.81 X10^6/uL (4.5-5.9); Red Cell Distribution Width 14.3 % (11.6-14.8); White Blood Cell Count 15.9 X10^3/uL (4.5-11.0)
[2020-12-12 11:01] LABS: Alanine Aminotransferase 20 IU/L (<50); Albumin 4.5 g/dL (3.5-5.0); Albumin Globulin Ratio 1.3 (1.0-2.8); Alkaline Phosphatase 82 U/L (38-126); Aspartate Aminotransferase 23 IU/L (17-59); BUN Creatinine Ratio 16.1 (6-22); Bilirubin Total 0.9 mg/dL (0.2-1.3); Blood Urea Nitrogen 22 mg/dL (9-20); Calcium 9.4 mg/dL (8.4-10.2); Carbon Dioxide 30 mmol/L (22-32); Chloride 96 mmol/L (98-107); Estimated Glomerular Filt Rate 53.9 mL/min (>60); Globulin 3.4 g/dL (1.7-4.1); Glucose 118 mg/dL (70-100); HEMOLYSIS < 15 (0-50); Lipase 24 U/L (23-300); Potassium 3.8 mmol/L (3.4-5.1); Sodium 135 mmol/L (137-145); Total Protein 7.9 g/dL (6.3-8.2)
[2020-12-12 11:54] LABS: Bacteria Urine None Seen; WBC Urine None Seen (0-5/HPF)
[2020-12-12 11:56] LABS: Appearance Urine UA CLEAR; Bilirubin Urine UA NEGATIVE (NEGATIVE); Color Urine UA YELLOW; Glucose Urine UA NEGATIVE (Negative); Ketones Urine UA TRACE (NEGATIVE); Leukocyte Esterase Urine UA NEGATIVE (NEGATIVE); Nitrite Urine UA NEGATIVE (Negative); Occult Blood Urine UA TRACE-LYSED (Negative); Protein Urine UA NEGATIVE (Negative); Urobilinogen Urine UA 0.2 E.U./dL (0.2)
[2020-12-12 12:17] LABS: RBC Urine 5-10/HPF (0-5/HPF)
[2020-12-12 12:18] LABS: Amorphous Sediment Urine 1+; Culture Indicated Urine Cult Not Indicated; Sperm Urine 2+; Squamous Epithelial Cell Urine 0-1 /HPF (0-5/HPF)
[2020-12-12] MEDS: cephALEXin 250 MG CAPSULE 500 MG PO (13:18)
[2020-12-12] MEDS: TAMSULOSIN 0.4 MG CAPSULE PO (13:20)
== END 2020-12-12 13:31 | disposition home or self-care (01) ==
PROVIDERS: Emergency Provider Emergency Medicine
DX: N20.1 Calculus of ureter (principal)
CPT/HCPCS: 36415; 74176; 80053; 81001; 83690; 85025; 96361; 96374; 96375; 99284; J2270; J2405

== ENCOUNTER → 2020-12-19 11:22 | Outpatient (CLI) | payer SELFPAY ==
[2020-12-23 11:16] LABS: Ca oxalate dihydrate 20 % (.); Ca oxalate monohydr 80 % (.); Size 4x3 mm (.)
== END ==
PROVIDERS: Visit Provider Specialist
DX: N20.0 Calculus of kidney (principal)
CPT/HCPCS: 82365